=== PATIENT | male | born 1975 | race Hispanic/Latino ===

== ENCOUNTER 2019-05-17 12:43 | Emergency (ER) | payer SELFPAY ==
[2019-05-17 13:20] VITALS: BP 137/85
--- NOTE | 2019-05-17 13:22 | Event Note ---
ED Screening Note Date of service: 05/17/19 Time: 13:17 ED Screening Note: 43 y/o male comes in for urinary retention, testicle pain and swelling times 1 month. This initial assessment/diagnostic orders/clinical plan/treatment(s) is/are subject to change based on patients health status, clinical progression and re- assessment by fellow clinical providers in the ED. Further treatment and workup at subsequent clinical providers discretion. Patient/guardian urged not to elope from the ED as their condition may be serious if not clinically assessed and managed. Initial orders include:
[2019-05-17 14:02] LABS: Bilirubin,Urine NEG (Negative); Blood,Urine NEG (Negative); Color,Urine Yellow (Yellow); Mucus,Urine FEW /HPF; Protein,Urine <15 mg/dL mg/dL (Negative); Urobilinogen,Urine < 2.0 mg/dL (<2.0)
--- NOTE | 2019-05-17 14:35 | Ultrasound Report ---
PROCEDURE: US TESTICULAR DOPPLER COMP TECHNIQUE: Real-time avendano-scale and color flow Doppler sonography in multiple planes of the scrotum, testicles, and epididymides was performed. Velocity spectral waveform analysis and color Doppler josey ging of the arterial inflow and venous outflow of the testicles was performed with image documentatio n. HISTORY: testes pain and swelling COMPARISONS: None . FINDINGS: RIGHT TESTICLE: Size: 4.5 x 2.2 x 3.2 cm . Appearance: Normal size and echotexture . Arterial blood flow: Normal spectral waveforms, flow velocities and color flow images.. Venous blood flow: Normal spectral waveforms and color flow images. Right epididymis: Normal size and echotexture . Hydrocele: None . LEFT TESTICLE Size: 4.5 x 2.0 x 3.0 cm . Appearance: Normal size and echotexture . Arterial blood flow: Normal spectral waveforms, flow velocities and color flow images.. Venous blood flow: Normal spectral waveforms and color flow images. Left epididymis: Normal size and echotexture . Hydrocele: None . IMPRESSION: No acute abnormality is identified . This document is electronically signed by Vida Freed MD., May 17 2019 02:33:44 PM ET
--- NOTE | 2019-05-17 15:02 | Emergency Department Report ---
ED Male HPI - General Chief complaint: Urogenital-Male Stated complaint: TESTICLE PAIN, FINGER NUMB Time Seen by Provider: 05/17/19 14:46 Source: patient Mode of arrival: Ambulatory Limitations: No Limitations - History of Present Illness Initial comments: Patient is 43 years old male was no significant past medical history. Patient presented to the ER complaining of one month history of bilateral testicular swelling. Patient stated that his symptoms started one month ago when he lifted a heavy toilet, symptoms started on the right side and now hurts on the left side. Patient denied any fever or chills. No been now discharge. Patient denied any history of hernia or lump in the groin. MD Complaint: testicle pain, testicle swelling - Related Data Previous Rx's Medication Instructions Recorded Last Taken Type Simvastatin 20 mg PO QHS #30 tablet 08/21/13 Unknown Rx oxyCODONE /ACETAMINOPHEN [Percocet 1 tab PO Q6HR PRN #14 tablet 08/21/13 Unknown Rx 5/325 mg] HYDROcodone/APAP 5-325 [[place] 1 each PO Q6HR PRN #10 tablet 10/12/14 Unknown Rx 5/325] Pantoprazole [Protonix] 40 mg PO QDAY #30 tablet 10/12/14 Unknown Rx Allergies Allergy/AdvReac Type Severity Reaction Status Date / Time No Known Allergies Allergy Verified 05/17/19 12:54 ED Review of Systems ROS: Stated complaint: TESTICLE PAIN, FINGER NUMB Other details as noted in HPI Comment: All other systems reviewed and negative ENT: denies: ear pain Cardiovascular: denies: chest pain, palpitations Gastrointestinal: denies: abdominal pain, nausea, vomiting Genitourinary: testicular pain Musculoskeletal: denies: back pain Neurological: denies: headache ED Past Medical Hx - Past Medical History Hx Congestive Heart Failure: No Hx Diabetes: No Hx Asthma: No Hx COPD: No - Surgical History Past Surgical History?: No - Social History Smoking Status: Current Every Day Smoker Substance Use Type: None - Medications Home Medications: Home Medications Medication Instructions Recorded Confirmed Last Taken Type Simvastatin 20 mg PO QHS #30 tablet 08/21/13 Unknown Rx oxyCODONE /ACETAMINOPHEN [Percocet 1 tab PO Q6HR PRN #14 tablet 08/21/13 Unknown Rx 5/325 mg] HYDROcodone/APAP 5-325 [[place] 1 each PO Q6HR PRN #10 tablet 10/12/14 Unknown Rx 5/325] Pantoprazole [Protonix] 40 mg PO QDAY #30 tablet 10/12/14 Unknown Rx ED Physical Exam - General Limitations: No Limitations General appearance: alert, in no apparent distress - Head Head exam: Present: atraumatic, normocephalic, normal inspection - Eye Eye exam: Present: normal appearance - ENT ENT exam: Present: normal exam, mucous membranes moist - Neck Neck exam: Present: normal inspection, full ROM. Absent: tenderness, meningismus, lymphadenopathy, thyromegaly - Respiratory Respiratory exam: Present: normal lung sounds bilaterally - Cardiovascular Cardiovascular Exam: Present: regular rate, normal rhythm, normal heart sounds - GI/Abdominal GI/Abdominal exam: Present: soft, normal bowel sounds. Absent: distended, tenderness, guarding, rebound, rigid - exam: Present: normal inspection. Absent: testicular tenderness, urethral discharge, scrotal swelling, vertical testicular lie External exam: Present: normal external exam. Absent: erythema, swelling, lesions, lacerations, ecchymosis, bleeding - Extremities Exam Extremities exam: Present: normal inspection - Back Exam Back exam: Present: normal inspection, full ROM. Absent: CVA tenderness (R), CVA tenderness (L), muscle spasm, paraspinal tenderness, vertebral tenderness - Neurological Exam Neurological exam: Present: alert, oriented X3, CN II-XII intact, normal gait, reflexes normal - Skin Skin exam: Present: warm, intact, normal color ED Course Vital Signs 05/17/19 05/17/19 13:18 15:11 Temperature 97.4 F L Pulse Rate 79 Respiratory 18 15 Rate Blood Pressure 137/85 O2 Sat by Pulse 100 Oximetry ED Medical Decision Making - Lab Data Result diagrams: 05/17/19 15:27 05/17/19 15:27 - Radiology Data Radiology results: report reviewed - Medical Decision Making Patient is 43 years old male was no significant past medical history. Patient presented to the ER complaining of one month history of bilateral testicular swelling. Patient stated that his symptoms started one month ago when he lifted a heavy toilet, symptoms started on the right side and now hurts on the left side. Patient denied any fever or chills. No been now discharge. Patient denied any history of hernia or lump in the groin. Patient remained stable. Labs reviewed and is unremarkable. Testicular ultrasound is negative for acute finding. Patient had a CT abdomen and pelvis which showed a left hip punctate nonobstructing right kidney stone and also sigmoid diverticulosis with no evidence of diverticulitis. Patient given Dr. Lieberman to follow-up and [facility]-to follow-up for the diverticulosis. Patient Also advised to return to the ER if symptoms are not improved. Critical care attestation.: If time is entered above; I have spent that time in minutes in the direct care of this critically ill patient, excluding procedure time. ED Disposition Clinical Impression: Testicular pain, Kidney stone, Diverticulosis Disposition: TO HOME OR SELFCARE Is pt being admited?: No Condition: Stable Instructions: Kidney Stones (ED), Diverticulosis (ED), Diverticulosis Diet (ED) Referrals: MELISSA LIEBERMAN MD [Staff Physician] - 3-5 Days [facility] [Provider Group] - 3-5 Days [facility] [Primary Care Provider] - 3-5 Days
[2019-05-17 15:41] LABS: Basophils # (Auto) 0.1 K/mm3 (0.0-0.1); Basophils % (Auto) 0.4 % (0.0-1.8); Eosinophils # (Auto) 0.2 K/mm3 (0.0-0.4); Eosinophils % (Auto) 1.7 % (0.0-4.3); Hematocrit 43.8 % (35.5-45.6); Hemoglobin 15.3 gm/dl (11.8-15.2); Lymphocytes # (Auto) 2.8 K/mm3 (1.2-5.4); Lymphocytes % (Auto) 22.6 % (13.4-35.0); Mean Corpuscular HGB Conc 35 % (32-34); Mean Corpuscular Volume 89 fl (84-94); Monocytes # (Auto) 0.8 K/mm3 (0.0-0.8); Monocytes % (Auto) 6.3 % (0.0-7.3); Platelet Count 269 K/mm3 (140-440); Red Blood Count 4.93 M/mm3 (3.65-5.03); Red Cell Distribution Width 13.5 % (13.2-15.2)
[2019-05-17 15:50] LABS: Partial Thromboplastin Time 30.2 Sec. (24.2-36.6)
--- NOTE | 2019-05-17 15:52 | Cat Scan Report ---
. PROCEDURE: CT ABDOMEN PELVIS WO CON TECHNIQUE: CT of the abdomen and pelvis was performed. No IV contrast administered. Axial images and coronal and sagittal reformatted images were obtained. HISTORY: ABDOMINAL PAIN COMPARISON: None FINDINGS: The visualized lung bases are clear. Within the limitations of a noncontrast exam, the visualized liver, spleen, pancreas, adrenal glands and right kidney demonstrate no significant abnormality. There is a punctate nonobstructing calculus in the left kidney. There is no hydronephrosis or other e vidence for acute obstructive uropathy. There is no abdominal aortic aneurysm. There is no evidence for intestinal obstruction. The appendix is normal. There is no abnormal fluid collection seen. There is no free intraperitoneal air. There is mild sigmoid diverticulosis. There is no acute diverticulitis seen. IMPRESSION: Punctate nonobstructing left intrarenal calculus. No hydronephrosis or evidence for obstructive uropa thy. Mild sigmoid diverticulosis. No acute diverticulitis seen. There is no acute abnormality identified. This document is electronically signed by Hilary Fernando MD., May 17 2019 03:50:52 PM ET
[2019-05-17 16:00] LABS: Alanine Aminotransferase 22 units/L (7-56); Albumin 3.9 g/dL (3.9-5); BUN/Creatinine Ratio 14; Blood Urea Nitrogen 10 mg/dL (9-20); Hemolysis Index 12
[2019-05-17 16:06] LABS: Bilirubin,Direct < 0.2 mg/dL (0-0.2)
== END 2019-05-17 16:58 | disposition home or self-care (01) ==
LOC: ED 12:43
DX: N50.819 Testicular pain, unspecified (principal); K57.90 Diverticulosis of intestine, part unspecified, without perforation or abscess without bleeding; N20.0 Calculus of kidney; F17.200 Nicotine dependence, unspecified, uncomplicated
CPT/HCPCS: 36415; 74176; 80048; 80076; 81001; 85025; 85610; 85730; 93975

== ENCOUNTER 2019-05-19 11:20 | Emergency (ER) | payer SELFPAY ==
--- NOTE | 2019-05-19 11:48 | Event Note ---
ED Screening Note Date of service: 05/19/19 Time: 11:47 ED Screening Note: 43 y/o male returns to ER from Saturday c/o Blood from rectum and having pain in abd. CT and US was done on Saturday. This initial assessment/diagnostic orders/clinical plan/treatment(s) is/are subject to change based on patients health status, clinical progression and re- assessment by fellow clinical providers in the ED. Further treatment and workup at subsequent clinical providers discretion. Patient/guardian urged not to elope from the ED as their condition may be serious if not clinically assessed and managed. Initial orders include:
[2019-05-19 11:51] VITALS: BP 153/95
[2019-05-19 12:25] LABS: Hematocrit 44.1 % (35.5-45.6); Hemoglobin 15.1 gm/dl (11.8-15.2); Mean Corpuscular HGB Conc 34 % (32-34); Mean Corpuscular Volume 90 fl (84-94); Platelet Count 298 K/mm3 (140-440); Red Blood Count 4.91 M/mm3 (3.65-5.03); Red Cell Distribution Width 13.2 % (13.2-15.2)
[2019-05-19 12:38] LABS: BUN/Creatinine Ratio 10; Blood Urea Nitrogen 10 mg/dL (9-20); Calcium 8.7 mg/dL (8.4-10.2); Hemolysis Index 6
[2019-05-19] MEDS ORDERED: NACL 0.9% 1000 ML 1,000 ML IV ONE (13:28)
[2019-05-19] MEDS ORDERED: ZOFRAN IV ONE (13:28)
[2019-05-19] MEDS ORDERED: MORPHINE IV ONE ×2 (13:28→16:49)
--- NOTE | 2019-05-19 14:36 | Emergency Department Report ---
<SHRUTHI TEJADA - Last Filed: 05/19/19 14:34> ED General Adult HPI - General Chief complaint: Abdominal Pain Stated complaint: TESTICAL SWOLLEN, RECTAL BLEEDING Time Seen by Provider: 05/19/19 12:16 Source: patient Mode of arrival: Ambulatory Limitations: No Limitations - History of Present Illness Initial comments: Patient presents to the emergency department with a chief complaint of abdominal and testicular pain that started on Saturday. Patient also complains of blood in the stool as well. Patient will see her on Saturday had a CT of the abdomen and an ultrasound of his testicles done. At time of discharge the patient was told to follow urology been evaluated by urology this morning he was sent to the ed for further evaluation. -: Gradual Location: abdomen, genitals Radiation: non-radiation Severity scale (0 -10): 7 Quality: constant Consistency: constant Improves with: none Worsens with: none Associated Symptoms: denies other symptoms Treatments Prior to Arrival: none - Related Data Previous Rx's Medication Instructions Recorded Last Taken Type Naproxen [Naprosyn] 500 mg PO BID #14 tablet 05/17/19 Unknown Rx Ondansetron [Zofran Odt] 4 mg PO Q8HR PRN #14 tab.rapdis 05/17/19 Unknown Rx traMADol [Ultram 50 MG tab] 50 mg PO Q4HR PRN #14 tablet 05/17/19 Unknown Rx Allergies Allergy/AdvReac Type Severity Reaction Status Date / Time No Known Allergies Allergy Verified 05/17/19 12:54 ED Review of Systems Comment: All other systems reviewed and negative Constitutional: denies: chills, fever Eyes: denies: eye pain, eye discharge, vision change ENT: denies: ear pain, throat pain Respiratory: denies: cough, shortness of breath, wheezing Cardiovascular: denies: chest pain, palpitations Endocrine: no symptoms reported Gastrointestinal: abdominal pain. denies: nausea, diarrhea Genitourinary: denies: urgency, dysuria Musculoskeletal: denies: back pain, joint swelling, arthralgia Skin: denies: rash, lesions Neurological: denies: headache, weakness, paresthesias Psychiatric: denies: anxiety, depression Hematological/Lymphatic: denies: easy bleeding, easy bruising ED Past Medical Hx - Past Medical History Previous Medical History?: Yes Hx Congestive Heart Failure: No Hx Diabetes: No Hx Asthma: No Hx COPD: No Additional medical history: diverticulosis - Surgical History Past Surgical History?: No - Social History Smoking Status: Current Every Day Smoker Substance Use Type: None - Medications Home Medications: Home Medications Medication Instructions Recorded Confirmed Last Taken Type Naproxen [Naprosyn] 500 mg PO BID #14 tablet 05/17/19 Unknown Rx Ondansetron [Zofran Odt] 4 mg PO Q8HR PRN #14 tab.rapdis 05/17/19 Unknown Rx traMADol [Ultram 50 MG tab] 50 mg PO Q4HR PRN #14 tablet 05/17/19 Unknown Rx ED Physical Exam - General Limitations: No Limitations General appearance: alert, in no apparent distress - Head Head exam: Present: atraumatic, normocephalic - Eye Eye exam: Present: normal appearance - ENT ENT exam: Present: mucous membranes dry - Neck Neck exam: Present: normal inspection - Respiratory Respiratory exam: Present: normal lung sounds bilaterally. Absent: respiratory distress - Cardiovascular Cardiovascular Exam: Present: regular rate, normal rhythm. Absent: systolic murmur, diastolic murmur, rubs, gallop - GI/Abdominal GI/Abdominal exam: Present: soft, normal bowel sounds, hyperactive bowel sounds. Absent: distended, tenderness - Rectal Rectal exam: Present: deferred - Extremities Exam Extremities exam: Present: normal inspection - Back Exam Back exam: Present: normal inspection - Neurological Exam Neurological exam: Present: alert, oriented X3, CN II-XII intact. Absent: motor sensory deficit - Psychiatric Psychiatric exam: Present: normal affect, normal mood - Skin Skin exam: Present: warm, dry, intact, normal color. Absent: rash ED Medical Decision Making - Lab Data Result diagrams: 05/19/19 12:06 05/19/19 12:06 ED Disposition Clinical Impression: Abdominal pain, Kidney stone, Diverticulosis Disposition: DC- TO HOME OR SELFCARE Condition: Stable Instructions: Constipation (ED), Hemorrhoids (ED), Diverticulitis Diet (ED) Additional Instructions: FOLLOW UP WITH PCP REFERRAL BELOW FOLLOW UP WITH GI MD REFERRAL BELOW DIET AND ACTIVITY TOLERATED AVOID CONSTIPATING FOODS SEE ATTACHED RELATED TO DIVERTICULITIS HYDRATE WELL WITH WATER. Referrals: CLEMENTE DE JESUS MD [Staff Physician] - 3-5 Days VIMAL OVALLE MD [Staff Physician] - 3-5 Days GARY DAVIDSON MD [Staff Physician] - 3-5 Days CORY ORELLANA MD [Staff Physician] - 3-5 Days <ROCÍO-FERMÍN MARIANO - Last Filed: 05/19/19 18:28> ED Review of Systems ROS: Stated complaint: TESTICAL SWOLLEN, RECTAL BLEEDING Other details as noted in HPI ED Course Vital Signs 05/19/19 11:43 Temperature 97.5 F L Pulse Rate 82 Respiratory 18 Rate Blood Pressure 153/95 [Left] O2 Sat by Pulse 100 Oximetry ED Medical Decision Making - Lab Data Result diagrams: 05/19/19 12:06 05/19/19 12:06 - Medical Decision Making Labs 05/19/19 05/19/19 05/19/19 12:06 12:06 12:06 WBC 12.0 H RBC 4.91 Hgb 15.1 Hct 44.1 MCV 90 MCH 31 MCHC 34 RDW 13.2 Plt Count 298 Sodium 140 Potassium 3.7 Chloride 102.3 Carbon Dioxide 29 Anion Gap 12 BUN 10 Creatinine 1.0 Estimated GFR > 60 BUN/Creatinine Ratio 10 Glucose 93 Calcium 8.7 Lipase 23 Urine Color Urine Turbidity Urine pH Ur Specific [place] Urine Protein Urine Glucose (UA) Urine Ketones Urine Blood Urine Nitrite Urine Bilirubin Urine Urobilinogen Ur Leukocyte Esterase Urine WBC (Auto) Urine RBC (Auto) Urine Mucus Urine Sperm 05/19/19 15:05 WBC RBC Hgb Hct MCV MCH MCHC RDW Plt Count Sodium Potassium Chloride Carbon Dioxide Anion Gap BUN Creatinine Estimated GFR BUN/Creatinine Ratio Glucose Calcium Lipase Urine Color Yellow Urine Turbidity Slightly-cloudy Urine pH 7.0 Ur Specific [place] 1.014 Urine Protein <15 mg/dl Urine Glucose (UA) Neg Urine Ketones Neg Urine Blood Neg Urine Nitrite Neg Urine Bilirubin Neg Urine Urobilinogen < 2.0 Ur Leukocyte Esterase Neg Urine WBC (Auto) < 1.0 Urine RBC (Auto) 7.0 Urine Mucus Few Urine Sperm Few Vital Signs 05/19/19 11:43 Temperature 97.5 F L Pulse Rate 82 Respiratory 18 Rate Blood Pressure 153/95 [Left] O2 Sat by Pulse 100 Oximetry LONG DISCUSSION WITH PT AND ABOUT FINDINGS ON CT. VSS PT AMBULATORY; TAKING PO ASKING FOR PAIN MEDS- DECLINED DUE TO CONSTIPATION DC HOME WITH DC PLAN OF CARE AND GI FOLLOW UP Critical care attestation.: If time is entered above; I have spent that time in minutes in the direct care of this critically ill patient, excluding procedure time. ED Disposition Is pt being admited?: No Does the pt Need Aspirin: No Time of Disposition: 17:13
[2019-05-19 15:23] LABS: Bilirubin,Urine NEG (Negative); Blood,Urine NEG (Negative); Color,Urine Yellow (Yellow); Mucus,Urine FEW /HPF; Protein,Urine <15 mg/dL mg/dL (Negative); Sperm,Urine FEW /HPF (NP); Urobilinogen,Urine < 2.0 mg/dL (<2.0); WBC,Urine < 1.0 /HPF (0.0-6.0)
[2019-05-19] MEDS ORDERED: BENADRYL IV ONE (16:49)
--- NOTE | 2019-05-19 17:56 | Cat Scan Report ---
PROCEDURE: CT ABDOMEN PELVIS W CON TECHNIQUE: Computerized axial tomography of the abdomen and pelvis was performed after the administr ation of IV iodinated nonionic contrast. CT DOSE LENGTH PRODUCT: 1724.9 mGycm HISTORY: abdominal pain with rectal bleeding COMPARISONS: 05/17/2019 . FINDINGS: Patchy opacity is new in both lower lobes posteriorly which may be atelectasis. Differential includes pneumonia, larger on the right. No acute fracture. Normal-appearing liver, gallbladder, adrenals, pancreas, and spleen. Intact normal caliber abdominal aorta and IVC. Again noted in the 1 mm nonobstructing left renal calculus, less conspicuous on this exam with IV con trast. Normal-appearing kidneys and visible ureteral segments. Intact abdominal wall without ventral hernia. No retroperitoneal adenopathy. No evidence of mesenteri c mass. Nonspecific distention of the stomach containing prominent fluid and foodstuff. Correlate for recent meal. Normal-appearing duodenum. No small bowel distention in the abdomen and pelvis. No pelvic free fluid. Normal-appearing urinary bladder, prostate, seminal vesicles, and rectum. Slight diverticulosis sigmoid colon without definite CT evidence of diverticulitis. No gross ascites, free air, or colonic distention. Normal-appearing terminal ileum and appendix. Prominent stool from cecum to sigmoid suggesting constipation. IMPRESSION: New patchy opacity in both lower lobes posteriorly may be atelectasis. Differential includes pneumoni a, larger on the right Prominent stool from cecum to sigmoid may reflect constipation Slight diverticulosis sigmoid colon without definite CT evidence of diverticulitis 1 mm nonobstructing left renal calculus Nonspecific slight distention of the stomach containing prominent fluid and foodstuff. Correlate for recent meal versus delayed gastric emptying This document is electronically signed by John Williamson MD., May 19 2019 05:54:28 PM ET
[2019-05-19] MEDS ORDERED: CITRATE OF MAGNESIA PO ONE (18:11)
== END 2019-05-19 18:49 | disposition home or self-care (01) ==
LOC: ED 11:20
DX: N20.0 Calculus of kidney (principal); K57.91 Diverticulosis of intestine, part unspecified, without perforation or abscess with bleeding; F17.200 Nicotine dependence, unspecified, uncomplicated
CPT/HCPCS: 36415; 74177; 80048; 81001; 83690; 85027; 87086; 96374; 96375; 96376; 99284; J1200; J2270; J2405; J7030; Q9967